=== PATIENT | male | born 1965 | race Caucasian/White ===

== ENCOUNTER 2016-11-25 13:16 | Emergency (ER) | payer BC ==
[2016-11-25 13:21] VITALS: TEMP 98.6; O2SAT 96
[2016-11-25] MEDS ORDERED: NS 1,000 ML IV ONE (13:41)
[2016-11-25] MEDS ORDERED: KETOROLAC 30 MG/1 ML SDV IVP ONE (13:41)
--- NOTE | 2016-11-25 13:42 | EDPHY ---
H & P Time Seen by Provider: 11/25/16 13:27 HPI/ROS: CHIEF COMPLAINT: Right flank pain HISTORY OF PRESENT ILLNESS: The patient is a 51-year-old male with history of kidney stones, who presents with right flank pain. The patient developed dysuria with urgency 1 hour ago. About 15 minutes later he developed severe right flank pain. He states this pain feels similar to previous kidney stone. He has associated nausea, no emesis. While in the ED the patient's pain has improved, now 7/10. He denies fever or hematuria. REVIEW OF SYSTEMS: A comprehensive 10 point review of systems is otherwise negative aside from elements mentioned in the history of present illness. Past Medical/Surgical History: Kidney stones. Social History: Nonsmoker. No alcohol. . Smoking Status: Never smoked Physical Exam: General Appearance: Alert, pleasant, does not appear in pain Eyes: Pupils equal and round, no conjunctival pallor or injection ENT, Mouth: Mucous membranes moist Neck: Normal inspection Respiratory: Lungs are clear to auscultation Cardiovascular: Regular rate and rhythm Gastrointestinal: Abdomen is soft and non-tender Back: No CVA tenderness Neurological: A&O, nonfocal, normal gait Skin: Warm and dry, no rash Extremities: Nontender, no pedal edema Psychiatric: Mood and affect normal Constitutional: Initial Vital Signs Temperature (C) 37 C 11/25/16 13:19 Heart Rate 66 11/25/16 13:19 Respiratory Rate 14 11/25/16 13:19 Blood Pressure 132/87 H 11/25/16 13:19 O2 Sat (%) 96 11/25/16 13:19 O2 Delivery Mode Room Air Allergies/Adverse Reactions: No Known Allergies Allergy (Unverified 11/25/16 13:21) Medical Decision Making - Diagnostics Imaging Results: Imaging Impressions Abdomen X-Ray 11/25/16 13:42 Impression: 1. No bowel obstruction. 2. Prior cholecystectomy. 3. Possible right nephrolithiasis. 4. Possible right ureterolithiasis. 5. Consider noncontrast CT imaging. ED Course/Re-evaluation: The patient has a history of kidney stones, he presents to the ED with urinary complaints and right flank pain that started about 1 hour prior to arrival. The patient has moderate pain. He states this pain feels similar to previous kidney stone. Plan to treat pain with IV fluids and Toradol. 2:30 p.m.: KUB revealed a likely ureteral calculus in the mid ureter. I reevaluated the patient. His pain has resolved. Abdomen is soft and nontender. The patient urinated and passed a stone in the ED. Differential Diagnosis: Differential diagnosis includes though it is not limited to appendicitis, cholecystitis, diverticulitis, pyelonephritis, bowel perforation, small bowel obstruction. - Data Points Medications Given: Discontinued Medications Sodium Chloride (Ns) 1,000 mls @ 0 mls/hr IV ONCE ONE PRN Reason: Wide Open Stop: 11/25/16 13:42 Last Admin: 11/25/16 13:47 Dose: 1,000 mls Ketorolac Tromethamine (Toradol) 15 mg IVP EDNOW ONE Stop: 11/25/16 13:42 Last Admin: 11/25/16 13:47 Dose: 15 mg Ondansetron HCl (Zofran) 4 mg IVP EDNOW ONE Stop: 11/25/16 13:44 Last Admin: 11/25/16 13:47 Dose: 4 mg Departure - Departure Disposition: Home, Routine, Self-Care Clinical Impression: Kidney stone Condition: Good Instructions: Kidney Stones (ED) Additional Instructions: Take 600mg Ibuprofen every 6-8 hours as needed for pain. Followup with your primary care physician as needed. Referrals: ADRIANNA ONEAL [Primary Care Provider] - As per Instructions Report Scribed for: Mishel Maravilla Report Scribed by: Aleida Henriquez Date of Report: 11/25/16 Time of Report: 13:43 Physician Review and Approval Statement: 11/25/16 13:43 Portions of this note were transcribed by a diploma medical assistant. I personally performed the history, physical exam, and medical decision-making; and confirmed the accuracy of the information in the transcribed note.
[2016-11-25] MEDS ORDERED: ONDANSETRON 4 MG/2 ML VIAL IVP ONE (13:43)
[2016-11-25 23:14] VITALS: BP 140/68; PULSE 64; RESP 16
== END 2016-11-25 14:54 | disposition home or self-care (01) ==
DX: N20.0 Calculus of kidney (principal)
CPT/HCPCS: 96374; J1885; J2405